=== PATIENT | female | born 1985 | race Caucasian/White ===

== ENCOUNTER 2017-04-10 09:37 | Emergency (ER) | payer OTHER ==
[2017-04-10 09:47] VITALS: BP 131/83
--- NOTE | 2017-04-10 10:25 | UC ---
Throat Pain/Nasal Tal HPI - HPI Summary HPI Summary: 03/17/17 PRODUCTIVE COUGH CONGESTION. EAR ACHE, FACIAL PRESURE AND SINUS PRESSURE. NO FEVER. - History of Current Complaint Chief Complaint: UCRespiratory Stated Complaint: RESP ISSUE Time Seen by Provider: 04/10/17 09:55 Hx Obtained From: Patient Hx Last Menstrual Period: 03/11/17 Onset/Duration: Gradual Onset, Lasting Weeks, Still Present Severity: Moderate Cough: Productive Associated Signs & Symptoms: Positive: Hoarseness, Sinus Discomfort, Nasal Discharge - Epiglottits Risk Factors Epiglottis Risk Factors: Negative - Allergies/Home Medications Allergies/Adverse Reactions: Allergies Allergy/AdvReac Type Severity Reaction Status Date / Time Penicillins Allergy Severe Unknown Verified 04/10/17 09:48 Reaction Details PMH/Surg Hx/FS Hx/Imm Hx Previously Healthy: Yes - Surgical History Surgical History: Yes Surgery Procedure, Year, and Place: wisdom teeth. ovarian cyst removed 2014 - Family History Known Family History: Negative: Respiratory Disease - Social History Occupation: Employed Full-time Lives: With Family Alcohol Use: Occasionally Substance Use Type: None Smoking Status (MU): Never Smoked Tobacco Review of Systems Constitutional: Negative Skin: Negative Eyes: Negative ENT: Nasal Discharge, Sinus Congestion, Sinus Pain/Tenderness Respiratory: Cough Cardiovascular: Negative Gastrointestinal: Negative Genitourinary: Negative Motor: Negative Neurovascular: Negative Musculoskeletal: Negative Neurological: Negative Psychological: Negative Is Patient Immunocompromised?: No All Other Systems Reviewed And Are Negative: Yes Physical Exam Triage Information Reviewed: Yes Appearance: No Pain Distress, Well-Nourished, Ill-Appearing Vital Signs: Initial Vital Signs Temp 98.8 F 04/10/17 09:41 Pulse 99 04/10/17 09:41 Resp 20 04/10/17 09:41 BP 131/83 04/10/17 09:41 Pulse Ox 100 04/10/17 09:41 Vital Signs Reviewed: Yes Eye Exam: Normal ENT: Positive: Pharynx normal, Nasal congestion, TM bulging, TM dull, TM red Dental Exam: Normal Neck exam: Normal Neck: Positive: Supple, Nontender, No Lymphadenopathy Respiratory Exam: Other - COUGH Respiratory: Positive: Chest non-tender, Lungs clear, Normal breath sounds, No respiratory distress, No accessory muscle use Cardiovascular Exam: Normal Cardiovascular: Positive: RRR, No Murmur, Pulses Normal Abdominal Exam: Normal Musculoskeletal Exam: Normal Neurological Exam: Normal Psychological Exam: Normal Skin Exam: Normal Throat Pain/Nasal Course/Dx - Differential Dx/Diagnosis Differential Diagnosis/HQI/PQRI: Pharyngitis, Sinusitis, URI Provider Diagnoses: SINUSITIS; UPPER RESPIRATORY INFECTION Discharge - Discharge Plan Condition: Stable Disposition: HOME Prescriptions: Benzonatate CAP* [Tessalon 100 MG CAP*] 100 mg PO TID PRN #15 cap PRN Reason: Cough DOXYcycline CAP(*) [DOXYcycline 100MG CAP(*)] 100 mg PO DAILY #20 cap Patient Education Materials: Sinusitis (ED), Upper Respiratory Infection (ED) Forms: *Work Release Referrals: [facility] [Outside] No Primary Care Phys,NOPCP [Primary Care Provider] - Additional Instructions: PRIMARY CARE: There are four major types of clinical preventive care: immunizations, screening , behavioral counseling (sometimes referred to as lifestyle changes), and preventive medicine. All four apply throughout the life span. It is important to establish and to have access to a Primary Care Physician, not only for follow -up regarding acute and chronic problems, but also for preventative care.
== END 2017-04-10 10:17 | disposition home or self-care (01) ==
LOC: UCEAST 09:37
DX: J06.9 Acute upper respiratory infection, unspecified (principal); Z88.0 Allergy status to penicillin; J32.9 Chronic sinusitis, unspecified
CPT/HCPCS: 99202; G0463

== ENCOUNTER 2018-10-29 05:52 | Day surgery (SDC) | payer OTHER ==
--- NOTE | 2018-10-25 09:17 | HP ---
PREOPERATIVE HISTORY AND PHYSICAL: DATE OF SURGERY/ADMISSION: 10/29/18 DATE OF OFFICE VISIT/ENCOUNTER: 10/21/18 ATTENDING SURGEON: Shirley Huertas MD* (dictated by SUSAN Holland). PROCEDURE: Excision of mass, left long finger. HISTORY OF PRESENT ILLNESS: This is a 33-year-old female who complains of a painful mass on the volar aspect of the left middle finger that has been present for about 2 months. She does not recall any specific injury. It bothers her when she touches it. If she is not applying any pressure, it feels okay. She will occasionally get a tingling sensation with it. She works in an office at [employer] and some of her work activities do bother it. She would like to have the mass surgically removed. PAST MEDICAL HISTORY: Unremarkable. PAST SURGICAL HISTORY: Left ovarian cyst excision. CURRENT MEDICATIONS: Vitamins. ALLERGIES: PENICILLIN, reaction unknown. FAMILY MEDICAL HISTORY: Diabetes, hypertension, rheumatoid arthritis. 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 She denies tobacco use and recreational drug use. She drinks alcohol on occasion. REVIEW OF SYSTEMS: Negative for general, cephalic, cardiovascular, respiratory , GI, , other musculoskeletal, integumentary, endocrine, neurologic, and hematologic symptoms. Infectious Disease: Negative for MRSA, hepatitis C, HIV. PHYSICAL EXAMINATION GENERAL: Well-developed, well-nourished 33-year-old female in no acute distress. VITAL SIGNS: Height 5 feet 3 inches, weight 317 pounds, pulse rate 68, and blood pressure 132/74. HEENT: Normocephalic and atraumatic. Pupils are equal, round, and reactive to light and accommodation. Extraocular movements are intact. NECK: Supple. No palpable lymph nodes. Throat is clear. PULMONARY: Lungs are clear to auscultation bilaterally. No wheezes, rales, or rhonchi. CARDIOVASCULAR: Regular rate and rhythm. S1 and S2. No murmurs, rubs, or gallops. No edema. ABDOMEN: Positive bowel sounds. Soft and nontender. NEUROLOGIC: Alert and oriented x3. Cranial nerves II through XII are intact. Sensation is intact to light touch. MUSCULOSKELETAL: On exam of her left hand, she has a small cystic lesion at the MP flexion crease of her middle finger. It is very tender to palpation. Negative Tinel's sign associated with it. She can make a full fist and she has full extension of the fingers. Neurovascular function is intact. IMAGING: X-rays were taken of the left hand, AP lateral and oblique are unremarkable. IMPRESSION: Right middle finger mass, probably a ganglion cyst. PLAN/RECOMMENDATIONS: The patient is scheduled to undergo an excision mass, left long finger with Dr. Huertas on 10/29/18. She will return to the office 10 days postop for followup and suture removal. A prescription for Ultracet was e- scribed to the patient's pharmacy for postoperative pain management. SUSAN HOLLAND [id number]/CPS #: [id number] MTDD
[~2018-10-29 05:52] MED LIST: Buffered Lidocaine 1% SYRIN* 1 ML/SYRINGE INTRADERM ONE; DiMENhydriNATE IV* 50 MG/ML VIAL IV PUSH PRN; Naloxone* 0.4 MG/ML 1 ML VIAL IV PRN; Ondansetron TAB* 4 MG PO ONE; PROCHLORPERAZINE INJ 5 MG/ML 2 ML VIAL IV PRN; fentaNYL* 50 MCG/ML 2 ML VIAL (100 MCG VIAL) IV PRN; oxyCODONE/Acetamin 5/325 MG* TAB PO PRN
[2018-10-29] MEDS ORDERED: Lactated Ringers 1000 ML Bag* 1,000 ML IV SCH (06:00)
[2018-10-29] MEDS ORDERED: Dexamethasone TAB* 4 MG PO ONE (06:00)
[2018-10-29] MEDS ORDERED: Famotidine IV* 10 MG/ML 2 ML (20 mg) IV ONE (06:00)
[2018-10-29] MEDS ORDERED: Ondansetron ODT TAB* 4 MG ONE (06:34)
[2018-10-29] MEDS ORDERED: Buffered Lidocaine 1% SYRIN* 1 ML/SYRINGE INTRADERM ONE (06:35)
[2018-10-29] MEDS ORDERED: Famotidine IV* 10 MG/ML 2 ML (20 mg) ONE (06:35)
[2018-10-29] MEDS ORDERED: Dexamethasone TAB* 4 MG ONE (06:35)
[2018-10-29] MEDS ORDERED: Lidocaine 1% INJ* 10 MG/ML 30 ML SDV ONE ×2 (06:50→07:07)
[2018-10-29] MEDS ORDERED: fentaNYL* 50 MCG/ML 2 ML VIAL (100 MCG VIAL) ONE (07:20)
[2018-10-29] MEDS ORDERED: Midazolam* 1 MG/ML 5 ML VIAL (5 MG) ONE (07:20)
[2018-10-29] MEDS ORDERED: KETAMINE HCL* 50 MG/ML 10 ML VIAL ONE (07:20)
[2018-10-29] MEDS ORDERED: Propofol* 10 MG/ML 20 ML BTL ONE (07:24)
[2018-10-29] MEDS ORDERED: PROCHLORPERAZINE INJ 5 MG/ML 2 ML VIAL ONE (07:24)
[2018-10-29] MEDS ORDERED: Lidocaine 2% PF * 5 ML VIAL ONE (07:54)
[2018-10-29 08:20] VITALS: BP 123/75
--- NOTE | 2018-10-29 09:04 | OP ---
DATE OF OPERATION: 10/29/18 - [facility] DATE OF : 87 SURGEON: Shirley Huertas MD. SUPPORT SPECIALIST: SUSAN Holland. ANESTHESIA: Local MAC. PRE-OP DIAGNOSIS: Left middle finger mass. POST-OP DIAGNOSIS: Left middle finger mass. OPERATIVE PROCEDURE: Removal of left middle finger mass. ESTIMATED BLOOD LOSS: Zero. TOURNIQUET TIME: Approximately 10 minutes. INDICATION FOR PROCEDURE: Lee Ann is a 34-year-old female who has a painful mass at the MP flexion crease of her left middle finger. She presents for removal. DESCRIPTION OF PROCEDURE: The patient was brought to the operating room, was given a sedation anesthetic and local infiltration of 10 cc with 1% plain lidocaine in the palm of her left hand overlying the middle finger mass. Skin of her left hand and forearm was prepped and draped in the usual sterile fashion. The hand and forearm were exsanguinated and the tourniquet elevated to 250 mmHg. A transverse incision was made centered over the mass, which was just proximal to the MP flexion crease. Dissected bluntly through the subcutaneous tissue. There was a large cystic mass emanating from the flexor tendon sheath. It was removed with a small portion of the flexor tendon sheath and sent for pathology. The wound was irrigated and the skin edges were reapproximated with 4-0 nylon suture. The wound was dressed with Xeroform, 4x4 , Webril, and an Coban. The patient tolerated the procedure well and was brought to the recovery room in good condition. [id number]/CPS #: [id number] MTDD
== END 2018-10-29 08:39 | disposition home or self-care (01) ==
LOC: OR 05:52
PROVIDERS: ATTEND Orthopaedic Surgery
DX: M67.442 Ganglion, left hand (principal)
CPT/HCPCS: 81025; 88305; A9270-GY; J0780; J2250; J2704; J3010; J8540

== ENCOUNTER 2022-11-14 12:57 | Observation (INO) ==
[~2022-11-14 12:57] MED LIST changes: +Buffered Lidocaine 1% SYRIN 1 ml INTRADERM ONE; -Buffered Lidocaine 1% SYRIN* 1 ML/SYRINGE INTRADERM ONE; -DiMENhydriNATE IV* 50 MG/ML VIAL IV PUSH PRN; +Lactated Ringers 1000 ml BAG 1,000 ML IV SCH; +Naloxone 0.4 mg VIAL 0.4 mg/ml 1 ml VIAL IV PRN; -Naloxone* 0.4 MG/ML 1 ML VIAL IV PRN; -Ondansetron TAB* 4 MG PO ONE; -PROCHLORPERAZINE INJ 5 MG/ML 2 ML VIAL IV PRN; +Prochlorperazine 5 mg/ml 2 ml VIAL (10 mg) IV PRN; -fentaNYL* 50 MCG/ML 2 ML VIAL (100 MCG VIAL) IV PRN; -oxyCODONE/Acetamin 5/325 MG* TAB PO PRN
[2022-11-14] MEDS ORDERED: Clindamycin 900 MG/50 **NS BAG 900 MG/50 ML BAG ONE (13:35)
[2022-11-14] MEDS ORDERED: Midazolam 2 mg/2 ml VIAL 1 mg/ml 2 ml VIAL (2 mg) ONE (15:01)
[2022-11-14] MEDS ORDERED: fentaNYL 250 mcg/5 ml 50 MCG/ML 5 ml VIAL (250 MCG) ONE (15:01)
[2022-11-14] MEDS ORDERED: Scopolamine 1 mg/72hr PATCH ONE (15:05)
[2022-11-14] MEDS ORDERED: Rocuronium 50 mg VIAL 10 mg/ml 5 ml VIAL (50 mg) ONE ×2 (15:08→15:21)
[2022-11-14] MEDS ORDERED: Scopolamine 1 mg/72hr PATCH TRANSDERM SCH (16:00)
[2022-11-14] MEDS ORDERED: Propofol 10 MG/ML 20 ML BTL ONE ×4 (16:02)
[2022-11-14] MEDS ORDERED: Ondansetron 4 mg VIAL 2 MG/ML 2 ml VIAL ONE ×2 (16:02)
[2022-11-14] MEDS ORDERED: Dexamethasone IV 4 MG/ML VIAL 1 ml VIAL ONE ×2 (16:02)
[2022-11-14] MEDS ORDERED: Lidocaine 2% PF 5 ML VIAL ONE (16:02)
[2022-11-14] MEDS ORDERED: HYDROmorphone 1 MG/1 ML SYRINGE ONE (17:21)
[2022-11-14] MEDS ORDERED: HYDROmorphone 0.5 MG/0.5 ML SYRINGE IV SLOW PU ONE (17:26)
[2022-11-14] MEDS ORDERED: fentaNYL 100 mcg/2 ml 50 MCG/ML VIAL ONE (17:27)
[2022-11-14] MEDS: fentaNYL 100 mcg/2 ml 50 MCG/ML VIAL IV PRN ×2 (17:30→17:43)
[2022-11-14] MEDS ORDERED: Acetaminophen IV 1 GM/100ML 1,000 MG/100 ML BAG IV ONE ×2 (17:32→17:44)
[2022-11-14 20:46] LABS: Rapid COVID-19 Molecular Undetected (Undetected)
[2022-11-14] MEDS: HYDROmorphone 1 MG/1 ML SYRINGE IV PRN (21:45)
[2022-11-15] MEDS: HYDROmorphone 1 MG/1 ML SYRINGE IV PRN ×3 (01:42→11:21)
[2022-11-15 11:12] VITALS: BP 107/55
== END 2022-11-15 15:50 | disposition home or self-care (01) ==
LOC: OR 12:57 → MEDTELE 12:57
PROVIDERS: ADMIT Surgery; ATTEND Surgery